=== PATIENT | female | born 1950 | race African-American/Black ===

== ENCOUNTER → 2017-07-12 | Outpatient (CLI) | payer OTHER ==
[~2017-07-12] MED LIST: CARDIZEM120 MG PO; FIORICET 325 MG1 TA1 PO; MICARDIS HCT 251 TAB PO; NEURONTIN800 MG/TAB PO; PLAVIX 75MG TAB75 MG PO; REFRESH TEARS 330 ML OP; TOPAMAX 25MG25 M1 PO; XALATAN EYE DROPS OU; ZANAFLEX CAPSULE4 MG PO; ZANTAC 150MG T150 MG PO; ZOFRAN8 MG PO
== END ==
LOC: BHSO 10:45
DX: F33.1 Major depressive disorder, recurrent, moderate (principal)
CPT/HCPCS: G0463

== ENCOUNTER → 2017-08-23 | Outpatient (CLI) | payer OTHER | LOC: BHSO 10:48 | DX: F33.41 Major depressive disorder, recurrent, in partial remission (principal) | CPT/HCPCS: G0463 ==

== ENCOUNTER → 2017-11-18 | Outpatient (CLI) | payer OTHER | LOC: BHSO 11:21 | DX: F33.42 Major depressive disorder, recurrent, in full remission (principal) | CPT/HCPCS: G0463 ==

== ENCOUNTER → 2018-05-26 | Outpatient (CLI) | payer MEDICARE, OTHER | LOC: BHSO 10:29 | DX: F33.41 Major depressive disorder, recurrent, in partial remission (principal) | CPT/HCPCS: G0463 ==

== ENCOUNTER 2021-09-05 12:50 | Emergency (ER) | payer OTHER, MEDICARE ==
[~2021-09-05] VITALS: Ht 162.6 cm; Wt 65.9 kg
[2021-09-05 13:05] VITALS: TEMP 96
[2021-09-05 15:07] LABS: MEAN CELL VOLUME 83 fl (80.0-100.0); MEAN CORPUSCULAR HEMOGLOBIN 30 pg (27-31); MEAN CORPUSCULAR HGB CONC 36 g/dl (33.0-37.0); MEAN PLATELET VOLUME 9.6 fl (7.4-10.4); PLATELET COUNT 312 K/mm3 (130-400); RED BLOOD COUNT 4.34 M/mm3 (4.10-5.30); REDCELL DISTRIBUTION WIDTH-CV 12.4 % (11.5-14.5)
[2021-09-05 15:12] LABS: HEMATOCRIT 35.8 % (37.0-47.0)
[2021-09-05 15:23] LABS: ALBUMIN 4.5 gm/dL (3.4-4.8); CALCIUM 9.7 mg/dL (8.4-10.2); CREATININE, serum 1.55 mg/dL (0.57-1.11); MAGNESIUM 2.3 mg/dL (1.6-2.6); PHOSPHOROUS 3.7 mg/dL (2.3-4.7); POTASSIUM 3.4 mmol/L (3.5-4.5)
[2021-09-05 15:35] LABS: COLLECTION METHOD CLEAN CATCH
[2021-09-05 15:42] LABS: PH 5 (5-8); URINE APPEARANCE Hazy (CLEAR/HAZY); URINE BACTERIA None Seen /hpf (NONE SEEN); URINE BILIRUBIN Negative (NEGATIVE); URINE BLOOD Negative (NEGATIVE); URINE COLOR Yellow (YELLOW); URINE GLUCOSE Negative (NEGATIVE); URINE KETONE Negative (NEGATIVE); URINE LEUKOCYTE ESTERASE Trace (NEGATIVE); URINE NITRATE Negative (NEGATIVE); URINE PROTEIN(semi-quant) Negative (NEGATIVE); URINE RBC 0-2 /hpf (0-2); URINE UROBILINOGEN Negative (NEGATIVE)
[2021-09-05 16:28] VITALS: BP 144/84; PULSE 77
== END 2021-09-05 16:30 | disposition home or self-care (01) ==
LOC: COL.ER 12:50
PROVIDERS: Emergency Medicine
DX: E87.6 Hypokalemia (principal); R39.11 Hesitancy of micturition; R94.4 Abnormal results of kidney function studies